=== PATIENT | female | born 1955 | race Caucasian/White ===

== ENCOUNTER 2022-06-07 09:09 | Day surgery (SDC) | payer BC ==
[~2022-06-07] VITALS: Ht 165.1 cm; Wt 106.6 kg
[2022-06-07 10:14] VITALS: BP 173/82; PULSE 65; TEMP 97.6
[2022-06-07] MEDS ORDERED: PRENATAL DHA 200 SG PO (10:43)
[2022-06-07] MEDS ORDERED: NATURE'S BLEND600 M2 PO (10:44)
[2022-06-07] MEDS ORDERED: HAIRSKINNAILS PO (10:45)
[2022-06-07] MEDS ORDERED: TURMERIC500 MG PO (10:46)
[2022-06-07 11:15] VITALS: BP 121/63; PULSE 68; TEMP 97.3
--- NOTE | 2022-06-07 11:21 | NUR ---
1115 - PT arrives and was settled by Silvia MARTINEZ. Monitors applied and VSS. PT denies pain and nausea; non-slip socks are on. Warm blanekts applied. Visitor remains present. Snack and drink provided. PT oriented to room and call cuadra, within reach if needed.
--- NOTE | 2022-06-07 11:29 | NUR ---
1130 - VSS. PT expressed desire to be discharged. PT continues to snack and drink; denies nausea / pain. Call cuadra remains within reach if needed. Visitor remains present.
[2022-06-07 11:30] VITALS: BP 114/63; PULSE 62
[2022-06-07 11:45] VITALS: BP 155/70; PULSE 50
--- NOTE | 2022-06-07 12:18 | NUR ---
1200 - PT was dismissed from endo via wheelchair by an RN; per report, PT has DC packet and personal belongings; PT was trasnferred into the care of Franco, who is driving private car.
== END 2022-06-07 12:05 | disposition home or self-care (01) ==
LOC: SDCO 09:09
DX: Z12.11 Encounter for screening for malignant neoplasm of colon (principal); D12.2 Benign neoplasm of ascending colon; K57.30 Diverticulosis of large intestine without perforation or abscess without bleeding; K64.8 Other hemorrhoids
CPT/HCPCS: J2405; J2704; J7030